=== PATIENT | female | born 1960 | race Caucasian/White ===

== ENCOUNTER → 2021-01-08 11:09 | Outpatient (CLI) | payer OTHER, SELFPAY ==
[2021-01-08 13:52] LABS: Amphetamine Urine VISTA NEGATIVE (<1000 ng/mL); Barbiturate Urine VISTA NEGATIVE (< 200 ng/mL); Benzodiazepine Urine VISTA NEGATIVE (< 200 ng/mL); Cocaine Urine VISTA NEGATIVE (< 300 ng/mL); Ecstacy Urine VISTA NEGATIVE (< 500 ng/mL); Methadone Urine VISTA NEGATIVE (< 300 ng/mL); PCP Urine VISTA NEGATIVE (< 25 ng/mL); THC Urine VISTA POSITIVE (< 50 ng/mL); Vista UDS pH Range 5
== END ==
PROVIDERS: Referring Provider Anesthesiology Pain Medicine; Visit Provider Anesthesiology Pain Medicine
DX: F11.20 Opioid dependence, uncomplicated (principal)
CPT/HCPCS: 80307

== ENCOUNTER → 2021-02-05 12:37 | Outpatient (CLI) | payer OTHER, SELFPAY ==
[2021-02-05 14:04] LABS: Amphetamine Urine VISTA NEGATIVE (<1000 ng/mL); Barbiturate Urine VISTA NEGATIVE (< 200 ng/mL); Benzodiazepine Urine VISTA NEGATIVE (< 200 ng/mL); Cocaine Urine VISTA NEGATIVE (< 300 ng/mL); Ecstacy Urine VISTA NEGATIVE (< 500 ng/mL); Methadone Urine VISTA NEGATIVE (< 300 ng/mL); PCP Urine VISTA NEGATIVE (< 25 ng/mL); THC Urine VISTA NEGATIVE (< 50 ng/mL); Vista UDS pH Range 6
== END ==
PROVIDERS: PCP Internal Medicine; Referring Provider Anesthesiology Pain Medicine; Visit Provider Anesthesiology Pain Medicine
DX: F11.20 Opioid dependence, uncomplicated (principal)
CPT/HCPCS: 80307

== ENCOUNTER → 2021-08-21 | Outpatient (CLI) | payer OTHER, SELFPAY ==
[2021-08-21 11:37] LABS: Amphetamine Urine VISTA NEGATIVE (<1000 ng/mL); Barbiturate Urine VISTA NEGATIVE (< 200 ng/mL); Benzodiazepine Urine VISTA NEGATIVE (< 200 ng/mL); Cocaine Urine VISTA NEGATIVE (< 300 ng/mL); Ecstacy Urine VISTA NEGATIVE (< 500 ng/mL); Methadone Urine VISTA NEGATIVE (< 300 ng/mL); PCP Urine VISTA NEGATIVE (< 25 ng/mL); THC Urine VISTA POSITIVE (< 50 ng/mL); Vista UDS pH Range 5
== END | disposition home or self-care (01) ==
LOC: LAB 10:56
PROVIDERS: PCP Internal Medicine; Referring Provider Anesthesiology Pain Medicine; Visit Provider Anesthesiology Pain Medicine
DX: F11.20 Opioid dependence, uncomplicated (principal)
CPT/HCPCS: 80307

== ENCOUNTER → 2022-04-30 | Outpatient (CLI) | payer OTHER, SELFPAY ==
[2022-04-30 11:05] LABS: Amphetamine Urine VISTA NEGATIVE (<1000 ng/mL); Barbiturate Urine VISTA NEGATIVE (< 200 ng/mL); Benzodiazepine Urine VISTA NEGATIVE (< 200 ng/mL); Cocaine Urine VISTA NEGATIVE (< 300 ng/mL); Ecstacy Urine VISTA NEGATIVE (< 500 ng/mL); Methadone Urine VISTA NEGATIVE (< 300 ng/mL); PCP Urine VISTA NEGATIVE (< 25 ng/mL); THC Urine VISTA NEGATIVE (< 50 ng/mL); Vista UDS pH Range 5
== END | disposition home or self-care (01) ==
LOC: LAB 10:07
PROVIDERS: PCP Internal Medicine; Referring Provider Anesthesiology Pain Medicine; Visit Provider Anesthesiology Pain Medicine
DX: F11.20 Opioid dependence, uncomplicated (principal)
CPT/HCPCS: 80307

== ENCOUNTER → 2023-01-19 | Outpatient (CLI) | payer OTHER, SELFPAY ==
[2023-01-19 11:12] LABS: Amphetamine Urine VISTA NEGATIVE (<1000 ng/mL); Barbiturate Urine VISTA NEGATIVE (< 200 ng/mL); Benzodiazepine Urine VISTA NEGATIVE (< 200 ng/mL); Cocaine Urine VISTA NEGATIVE (< 300 ng/mL); Ecstacy Urine VISTA POSITIVE (< 500 ng/mL); Methadone Urine VISTA NEGATIVE (< 300 ng/mL); PCP Urine VISTA NEGATIVE (< 25 ng/mL); THC Urine VISTA NEGATIVE (< 50 ng/mL); Vista UDS pH Range 5
== END | disposition home or self-care (01) ==
LOC: LAB 10:22
PROVIDERS: PCP Internal Medicine; Referring Provider Anesthesiology Pain Medicine; Visit Provider Anesthesiology Pain Medicine
DX: F11.20 Opioid dependence, uncomplicated (principal)
CPT/HCPCS: 80307

== ENCOUNTER 2023-09-03 11:02 | Day surgery (SDC) | payer MEDICARE, SELFPAY ==
[2023-09-03] VITALS (8 sets, daily range): BP systolic 113–132; BP diastolic 69–83; PULSE 79–115; RESP 16; TEMP 36.2–36.7; O2SAT 94–100; BMI 28.9
[2023-09-03] MEDS: Lactated Ringers 1,000 ML 15 ML IV (11:37)
--- NOTE | 2023-09-03 11:47 | PCM.PRE.AN2 ---
ASA Classification* ASA Classification ASA Classification: 3 Assessment & Plan Anesthesia* Anesthesia Assessment Anesthesia Assessment: Discussed sedation and/or anesthesia options, risks, benefits, and alternatives with patient/parents/legal guardian/POA. Questions invited. The patient/parents/legal guardian/POA seems to understand and agrees to proceed with anesthesia plan. Reviewed the physical assessment, medical history, allergy history and patient home medications list prior to surgery/procedure/anesthetic and documented any changes. Performed airway and anesthesia risk assessments. Anesthesia Type Anesthesia Type: General History Source History Obtained from:: Patient and Chart Anesthesia Focused Assessment* Temperature: 98.1 F Pulse Rate: 79 Blood Pressure: 132/78 Respiratory Rate: 16 Pulse Ox: 100 Oxygen Delivery Method: Room Air Airway Assessment Mouth opens: >3 cm Mallampati Score: I Teeth Condition: Partial (Patient has permanent partials upper on both sides) Neck Range of motion (ROM): Full ROM Focused Labs Anesthesia Preop lab: CBC CHEMISTRY COAG Pre-Assessment Diagnosis/Proposed Procedure Planned Operative Procedure(s): (N/A) Insertion, Spinal Cord Stim,Permanent Anesthesia History Anesthesia History - advanced seal delivery system: Anesthesia History - advanced seal delivery system Hx Hospitalization No 08/27/23 14:20 Any Problems With Anesthesia Yes: PONV 08/27/23 14:20 Cholinesterase deficiency No 08/27/23 14:20 You/Your Family Experience No 08/27/23 14:20 fever (hyperthermia) with Relationship Recent Exposure to Contagious No 09/03/23 11:23 Disease Does patient have nerve No 08/27/23 14:20 stimulator Patient instructed to have device shut off --Does patient have Pacemaker No 09/03/23 11:23 or ICD? When Was Last Pacemaker Check QUESTION #4 FULL TEXT: You/Your Family Experience fever (hyperthermia) with Anesthesia Last Oral Intake Last Oral intake: Last Oral Intake NPO since 06:00 09/03/23 11:23 Meds taken in AM with sips of Yes 09/03/23 11:23 water? Meds patient instructed to SEE MAR 09/03/23 11:23 take am of surgery Any additional information?: Yes Meds taken in AM with sips of water?: Yes PONV PONV - advanced seal delivery system: PONV - advanced seal delivery system Female Yes 08/27/23 14:20 HX of Motion Sickness Yes 08/27/23 14:20 HX of N/V After Surgery Yes 08/27/23 14:20 Non-Smoker Yes 08/27/23 14:20 Duration of Surgery greater Yes 08/27/23 14:20 than 60 minutes Number of Risk Factors 5 08/27/23 14:20 PONV Score Severe Risk 08/27/23 14:20 Height & Weight Height & Weight: Anesthesia: Height & Weight Height 5 ft 1 in 09/03/23 11:23 Weight: 69.4 kg 09/03/23 11:23 Body Mass Index (BMI) 28.9 09/03/23 11:23 Respiratory Assessment Respiratory Assessment - advanced seal delivery system: Respiratory Tract Infection Hx - advanced seal delivery system Hx Respiratory Tract Infection No 08/27/23 14:20 STOP Sleep Apnea STOP Sleep Apnea - advanced seal delivery system: STOP Sleep Apnea - advanced seal delivery system Hx Hypertension Yes: PER PT, CONTROLLED ON 08/27/23 14:20 MEDS Hx Sleep Apnea No 08/27/23 14:20 CPAP BIPAP Do you snore loudly (louder No 08/27/23 14:20 than talking or can be heard Do you often feel tired/ No 08/27/23 14:20 fatigued/ sleepy during daytime? Has anyone observed you stop No 08/27/23 14:20 breathing during sleep? STOP Results Negative 08/27/23 14:20 QUESTION #5 FULL TEXT : Do you snore loudly (louder than talking or can be heard through closed doors)? Tobacco Use History Tobacco Use History - advanced seal delivery system: Tobacco Use History - advanced seal delivery system Tobacco Use Smoking Status Former smoker 08/27/23 14:20 Hx Tobacco Use No 08/27/23 14:20 Years Smoking Packs Smoked per Day Smoking Cessation Date was No - quit smoking greater 08/27/23 14:20 within the last 15 years than 15 years ago Hx Smoking Cessation Date Hx Smoking Cessation Counseling Hematologic Medial History Hematologic Hx - advanced seal delivery system: Hematologic Medical Hx - legal transcriptionist Hx of Blood Transfusion Yes 08/27/23 14:20 Hx of Transfusion in last 3 No 08/27/23 14:20 Months Date of Last Transfusion (if within last 3 months) Ever experience any problems No 08/27/23 14:20 with transfusion(s)? Specify any problems Hx of Preganancy in last 3 No 08/27/23 14:20 Months Nurse Filling Out Transfusion RIVANESSA 08/27/23 14:20 & Questions: Date: 08/27/23 08/27/23 14:20 Time: 14:22 08/27/23 14:20 Patient unable to answer at this time (ie. confused, unrespo /Reproduction History /Reproductive History - advanced seal delivery system: /Reproductive Hx- advanced seal delivery system Hx Now No 08/27/23 14:20 Gestational Age (in weeks): EDC: Hx Hx Para Hx Section SAB Active Medications Active Medications: Current Medications Generic Name Dose Route Start Last Admin Trade Name Freq PRN Reason Stop Dose Admin Cefazolin Sodium 2 gm/ Sodium 110 mls @ 150 mls/hr 09/03/23 12:30 Chloride IV 09/03/23 13:13 PREOP ONE Lactated Ringer's 1,000 mls @ 15 mls/hr 09/03/23 11:15 09/03/23 11:37 IV 15 mls/hr .Q48H JOSE MANULE Administration PFSH Medical History (Updated 08/27/23 @ 14:30 by Madison Rodriguez) Wears glasses Post-menopausal Difficult intravenous access Seasonal allergies Migraine headache History of hiatal hernia Gastric reflux Former smoker PONV (postoperative nausea and vomiting) Hypertension Fusion of spine Home Medications ?Medication ?Instructions ?Recorded ?Last Taken ?Type cholecalciferol (vitamin D3) 25 25 mcg PO DAILY 01/22/22 Unknown History mcg (1,000 unit) capsule eletriptan 40 mg tablet 40 mg PO DAILY PRN PRN migraine 01/22/22 Unknown History headache lisinopril 10 mg tablet 10 mg PO DAILY 01/22/22 09/03/23 06:00 History loratadine 10 mg tablet 10 mg PO DAILY 01/22/22 Unknown History multivitamin 1 tab PO DAILY 01/22/22 Unknown History lansoprazole 30 mg capsule,delayed 30 mg PO DAILY 08/27/23 Unknown History release oxycodone myristate 9 mg capsule 9 mg PO BID 08/27/23 Unknown History sprinkle extended release 12 hr(DON'T CRUSH) (Xtampza ER) Allergy/AdvReac Type Severity Reaction Status Date / Time acetaminophen (From Tylenol) Allergy Nausea/Vom/ Verified 09/03/23 11:21 Diarrhea amoxicillin (From Augmentin) Allergy Rash Verified 09/03/23 11:22 animal dander Allergy Itching Verified 09/03/23 11:21 cedarwood Allergy Itching Verified 09/03/23 11:21 clavulanic acid (From Allergy Rash Verified 09/03/23 11:22 Augmentin) Family History (Updated 01/22/22 @ 09:25 by Cyndi Saldana) Other CVA (cerebral vascular accident) Heart murmur Ovarian cancer Surgical History (Updated 08/27/23 @ 14:20 by Madison Rodriguez) History of colonoscopy History of hand surgery History of back surgery History of foot surgery History of cholecystectomy History of History of hysterectomy History of carpal tunnel release History of knee replacement Social History (Updated 01/22/22 @ 09:24 by Cyndi Saldana) Smoking Status: Former smoker alcohol intake: never Review of Systems (Anesthesia) ROS Narrative System reviewed and no additional complaints, except as documented.
--- NOTE | 2023-09-03 12:00 | RAD_ITS ---
HISTORY: SPINAL CORD STEM INSERT. TECHNIQUE: 5 spot images of the spine. COMPARISON: XR 01/22/2022. FINDINGS: OSSEOUS STRUCTURES: Thoracolumbar spinal fusion hardware again seen. Interval placement of thoracic spinal electrode. RAD/Lumbar Spine 2 or 3 Views IMPRESSION: Image guidance for spinal cord stimulator placement. Electronically Signed: Modesta Garcia MD at 8:59 EDT ,
[2023-09-03] MEDS: Vancomycin IV 1,000 MG/200 ML BAG 200 MG IV (12:08)
[2023-09-03] MEDS: Lidocaine 0.5% (50 ml) 50 ML Vial (15:06)
[2023-09-03] MEDS: Bupiv/Epi 0.25% 30 ML Vial (15:07)
--- NOTE | 2023-09-03 15:56 | PCM.POST.ANE ---
Anesthesia: Postop Eval I Current Vital Signs Temperature: 97.2 F Pulse Rate: 115 Blood Pressure: 129/69 Respiratory Rate: 16 Pulse Ox: 94 Oxygen Delivery Method: Room Air Assessment Airway patent: Yes Spontaneous unlabored respirations: Yes Mental status: Awake and Calm nausea: No Vomiting: No Anesthesia Complication: No Fluid Hydration Crystalloid volume administer (ml): 300 Total IV fluid infused: 300 Progress Note Anesthesia document: Postop Eval 1 completed: Yes
--- NOTE | 2023-09-03 16:56 | POSTOPAN2_ITS ---
Anesthesia Postop Eval I Sum Postop Eval Completion status Anesthesia document: Postop Eval 1 completed: Yes Anesthesia Postop Eval I Summary Anesthesia Postop Eval I Summary: Anesthesia Postop Eval I: Assessment Summary Airway patent Yes 09/03/23 15:56 AUTO RADIATOR SPECIALIST.MDOT Spontaneous unlabored Yes 09/03/23 15:56 AUTO RADIATOR SPECIALIST.MDOT respirations Mental status Awake,Calm 09/03/23 15:56 AUTO RADIATOR SPECIALIST.MDOT nausea No 09/03/23 15:56 AUTO RADIATOR SPECIALIST.MDOT Vomiting No 09/03/23 15:56 AUTO RADIATOR SPECIALIST.MDOT Anesthesia Postop Eval I: Fluid Summary Crystalloid volume administer 300 09/03/23 15:56 AUTO RADIATOR SPECIALIST.MDOT (ml) Colloids volume administered ( ml) Blood Product volume administered (ml) Total IV fluid infused 300 09/03/23 15:56 AUTO RADIATOR SPECIALIST.MDOT Anesthesia Postop Eval I: Summary Notes Anesthesia Complication No 09/03/23 15:56 AUTO RADIATOR SPECIALIST.MDOT Anesthesia Complication Comment: Post-operative progress note Anesthesia: Postop Eval II Evaluation Mental status: Awake and Calm Pain Level: 2 nausea: No Vomiting: No Complications Anesthesia Complication: No
--- NOTE | 2023-09-03 16:56 | PCM.POSTANE2 ---
Anesthesia Postop Eval I Sum Postop Eval Completion status Anesthesia document: Postop Eval 1 completed: Yes Anesthesia Postop Eval I Summary Anesthesia Postop Eval I Summary: Anesthesia Postop Eval I: Assessment Summary Airway patent Yes 09/03/23 15:56 SOFTWARE [email or web address] Spontaneous unlabored Yes 09/03/23 15:56 SOFTWARE [email or web address] respirations Mental status Awake,Calm 09/03/23 15:56 SOFTWARE [email or web address] nausea No 09/03/23 15:56 SOFTWARE [email or web address] Vomiting No 09/03/23 15:56 SOFTWARE [email or web address] Anesthesia Postop Eval I: Fluid Summary Crystalloid volume administer 300 09/03/23 15:56 SOFTWARE [email or web address] (ml) Colloids volume administered ( ml) Blood Product volume administered (ml) Total IV fluid infused 300 09/03/23 15:56 SOFTWARE [email or web address] Anesthesia Postop Eval I: Summary Notes Anesthesia Complication No 09/03/23 15:56 SOFTWARE [email or web address] Anesthesia Complication Comment: Post-operative progress note Anesthesia: Postop Eval II Evaluation Mental status: Awake and Calm Pain Level: 2 nausea: No Vomiting: No Complications Anesthesia Complication: No
== END 2023-09-03 16:39 | disposition home or self-care (01) ==
LOC: SDC 11:08 → AC 11:09
PROVIDERS: PCP Internal Medicine; Referring Provider Anesthesiology Pain Medicine; Visit Provider Anesthesiology Pain Medicine
PROC: (CPT 63685; principal; 2023-09-03 12:15)
DX: M54.16 Radiculopathy, lumbar region (principal); M96.1 Postlaminectomy syndrome, not elsewhere classified; M51.37 Other intervertebral disc degeneration, lumbosacral region; I10 Essential (primary) hypertension; Z79.899 Other long term (current) drug therapy; Z87.891 Personal history of nicotine dependence
CPT/HCPCS: 63650; 63685; 00620; 72100; 76000; C1778; C1820; J7120; J2405

== ENCOUNTER → 2023-11-24 | Outpatient (CLI) | payer MEDICARE, SELFPAY ==
[2023-11-24 10:55] LABS: Amphetamine Urine VISTA NEGATIVE (<1000 ng/mL); Barbiturate Urine VISTA NEGATIVE (< 200 ng/mL); Benzodiazepine Urine VISTA NEGATIVE (< 200 ng/mL); Cocaine Urine VISTA NEGATIVE (< 300 ng/mL); Ecstacy Urine VISTA POSITIVE (< 500 ng/mL); Methadone Urine VISTA NEGATIVE (< 300 ng/mL); PCP Urine VISTA NEGATIVE (< 25 ng/mL); THC Urine VISTA NEGATIVE (< 50 ng/mL); Vista UDS pH Range 5
== END | disposition home or self-care (01) ==
LOC: LAB 09:36
PROVIDERS: PCP Internal Medicine; Referring Provider Anesthesiology Pain Medicine; Visit Provider Anesthesiology Pain Medicine
DX: F11.20 Opioid dependence, uncomplicated (principal)
CPT/HCPCS: 80307

== ENCOUNTER → 2024-06-26 | Outpatient (CLI) | payer MEDICARE, SELFPAY ==
[2024-06-26 11:17] LABS: Amphetamine Urine NEGATIVE (<1000 ng/mL); Barbiturate Urine NEGATIVE (< 200 ng/mL); Benzodiazepine Urine NEGATIVE (< 200 ng/mL); Buprenorphine Urine NEGATIVE (< 200 ng/mL); Cocaine Urine NEGATIVE (< 300 ng/mL); Fentanyl, Urine NEGATIVE; Methadone Urine NEGATIVE (< 300 ng/mL); Opiates Urine NEGATIVE (< 300 ng/mL); Oxycodone, Urine PRESUMPTIVE POSITIVE (< 100 ng/mL); PCP Urine NEGATIVE (< 25 ng/mL); THC Urine NEGATIVE (< 50 ng/mL)
== END | disposition home or self-care (01) ==
LOC: LAB 09:32
PROVIDERS: PCP Internal Medicine; Referring Provider Anesthesiology Pain Medicine; Visit Provider Anesthesiology Pain Medicine
DX: F11.20 Opioid dependence, uncomplicated (principal)
CPT/HCPCS: 80307